=== PATIENT | male | born 1950 | race Caucasian/White ===

== ENCOUNTER 2017-10-15 15:03 | Emergency (ER) | payer MEDICARE, OTHER ==
--- NOTE | 2017-10-15 15:34 | EDM.PDOC ---
ED HPI GENERAL MEDICAL PROBLEM - General Chief Complaint: Neck Problem Stated Complaint: NECK PAIN Time Seen by Provider: 10/15/17 15:33 Source of Information: Reports: Patient - History of Present Illness INITIAL COMMENTS - FREE TEXT/NARRATIVE: HISTORY AND PHYSICAL: History of present illness: [ Patient presents with neck pain 6 out of 10 nonradiating right greater than left and eyes injury or trauma He has a history of rheumatoid arthritis he went to bed enjoying his usual state of health he awoke with neck pain, I can reproduce neck pain with palpation in her right trapezius distribution as well as SCM, worsened by turning head to the right better at rest No fever nausea vomiting chills sweats no chest pain shortness breath headache dizziness or palpitation no bowel or urine symptoms current ] Review of systems: As per history of present illness and below otherwise all systems reviewed and negative. Past medical history: As per history of present illness and as reviewed below otherwise noncontributory. Surgical history: As per history of present illness and as reviewed below otherwise noncontributory. Social history: No reported history of drug or alcohol abuse. Family history: As per history of present illness and as reviewed below otherwise noncontributory. Physical exam: HEENT: Atraumatic, normocephalic, pupils reactive, negative for conjunctival pallor or scleral icterus, mucous membranes moist, throat clear, neck supple, nontender, trachea midline. Right trapezius and SCM distribution pain reproduced with palpation i.e. muscle spasm Lungs: Clear to auscultation, breath sounds equal bilaterally, chest nontender. Heart: S1S2, regular, negative for clicks, rubs, or JVD. Abdomen: Soft, nondistended, nontender. Negative for masses or hepatosplenomegaly. Negative for costovertebral tenderness. Pelvis: Stable nontender. Genitourinary: Deferred. Rectal: Deferred. Extremities: Atraumatic, negative for cords or calf pain. Neurovascular unremarkable. Neuro: Awake, alert, oriented. Cranial nerves II through XII unremarkable. Cerebellum unremarkable. Motor and sensory unremarkable throughout. Exam nonfocal. Diagnostics: [Clinical ] Therapeutics: Flexeril Patient currently on tramadol history of renal insufficiency tenths no NSAIDs Soft collar Impression: [Muscle spasm] Definitive disposition and diagnosis as appropriate pending reevaluation and review of above. Neck Pain Score (Numeric/FACES): 9 - Related Data Allergies Allergy/AdvReac Type Severity Reaction Status Date / Time amoxicillin Allergy Other Verified 10/15/17 15:18 Past Medical History HEENT History: Reports: None Cardiovascular History: Reports: High Cholesterol Respiratory History: Reports: None Genitourinary History: Reports: Prostate Disorder, Other (See Below) Neurological History: Reports: None Psychiatric History: Reports: None Endocrine/Metabolic History: Reports: None Hematologic History: Reports: None Immunologic History: Reports: None Oncologic (Cancer) History: Reports: None Dermatologic History: Reports: None - Infectious Disease History Infectious Disease History: Reports: None - Past Surgical History Head Surgeries/Procedures: Reports: None GI Surgical History: Reports: Colonoscopy Musculoskeletal Surgical History: Reports: Knee Replacement Other Musculoskeletal Surgeries/Procedures:: right knee replacement 5 surgery on left knee Social & Family History - Tobacco Use Smoking Status *Q: Current Every Day Smoker Years of Tobacco use: 50 Packs/Tins Daily: 0.5 - Caffeine Use Caffeine Use: Reports: None - Recreational Drug Use Recreational Drug Use: No ED ROS GENERAL - Review of Systems Review Of Systems: ROS reveals no pertinent complaints other than HPI. ED EXAM, GENERAL - Physical Exam Exam: See Below Course - Vital Signs Last Recorded V/S: Last Vital Signs Temp 97.5 F 10/15/17 15:16 Pulse 75 10/15/17 15:16 Resp 20 10/15/17 15:16 BP 138/82 10/15/17 15:16 Pulse Ox 96 10/15/17 15:16 Departure - Departure Time of Disposition: 15:40 Disposition: Home, Self-Care 01 Condition: Good Clinical Impression: Cervical paraspinous muscle spasm - Discharge Information Referrals: PCP,None [Primary Care Provider] - Forms: ED Department Discharge Additional Instructions: Medication as prescribed Icy hot patches may benefit Ice 20 minute intervals 3 times daily Continue current medications as directed If were not able to find a soft collar for you, med [email or web address] will have them available tomorrow morning for purchase Follow-up with primary care as needed or in 2 weeks [facility] [address] [place] [id number] The following information is given to patients seen in the emergency department who are being discharged to home. This information is to outline your options for follow-up care. We provide all patients seen in our emergency department with a follow-up referral. The need for follow-up, as well as the timing and circumstances, are variable depending upon the specifics of your emergency department visit. If you don't have a primary care physician on staff, we will provide you with a referral. We always advise you to contact your personal physician following an emergency department visit to inform them of the circumstance of the visit and for follow-up with them and/or the need for any referrals to a consulting specialist. The emergency department will also refer you to a specialist when appropriate. This referral assures that you have the opportunity for follow-up care with a specialist. All of these measure are taken in an effort to provide you with optimal care, which includes your follow-up. Under all circumstances we always encourage you to contact your private physician who remains a resource for coordinating your care. When calling for follow-up care, please make the office aware that this follow-up is from your recent emergency room visit. If for any reason you are refused follow-up, please contact the [facility] emergency department at and asked to speak to the emergency department charge nurse.
== END 2017-10-15 15:52 | disposition home or self-care (01) ==
LOC: MW.ED 15:03
DX: M62.830 Muscle spasm of back (principal); E78.00 Pure hypercholesterolemia, unspecified; F17.210 Nicotine dependence, cigarettes, uncomplicated; Z88.1 Allergy status to other antibiotic agents
CPT/HCPCS: 99283

== ENCOUNTER 2018-09-10 05:02 | Emergency (ER) | payer MEDICARE, OTHER ==
[2018-09-10] MEDS ORDERED: Sodium Chloride 0.9% 2.5 ML Syringe FLUSH PRN (05:24)
[2018-09-10] MEDS ORDERED: Sodium Chloride 0.9% 500 ML IV ONE (05:24)
[2018-09-10] MEDS ORDERED: Sodium Chloride 0.9% 10 ML Syringe FLUSH PRN (05:24)
[2018-09-10] MEDS ORDERED: Sodium Chloride 0.9% 1,000 ML IV ONE (05:35)
--- NOTE | 2018-09-10 05:35 | EDM.PDOC ---
ED HPI GENERAL MEDICAL PROBLEM - General Chief Complaint: Genitourinary Problem Stated Complaint: BLOOD IN URINE Time Seen by Provider: 09/10/18 05:17 Source of Information: Reports: Patient History Limitations: Reports: No Limitations - History of Present Illness INITIAL COMMENTS - FREE TEXT/NARRATIVE: History of present illness: []Patient started having severe crampy left flank pain with bloody urine early this morning. Patient has had renal cancer in 2006 with a right nephrectomy. Patient denies any fevers, chills, nausea or vomiting. Patient had one episode of diarrhea this morning but feels that it was due to a "greasy pot roast" last night for dinner. Patient also has had right arm swelling for the past 5 days which is improving. He states that he intermittently gets this swelling in different extremities. He denies any trauma, insect bites, chest pain, shortness of breath or pain in the extremity. Review of systems: As per history of present illness and below otherwise all systems reviewed and negative. Past medical history: As per history of present illness and as reviewed below otherwise noncontributory. Surgical history: As per history of present illness and as reviewed below otherwise noncontributory. Social history: No reported history of drug or alcohol abuse. Family history: As per history of present illness and as reviewed below otherwise noncontributory. Physical exam: General: Well developed, well nourished in NAD HEENT: Atraumatic, normocephalic, pupils reactive, negative for conjunctival pallor or scleral icterus, mucous membranes moist, throat clear, neck supple, nontender, trachea midline. Lungs: Clear to auscultation, breath sounds equal bilaterally, chest nontender. Heart: S1S2, regular, negative for clicks, rubs, or JVD. Abdomen: NABS, Soft, nondistended, nontender. Negative for masses or hepatosplenomegaly. Positive for left costovertebral tenderness. Pelvis: Stable nontender. Genitourinary: Deferred. Rectal: Deferred. Extremities: Atraumatic, negative for cords or calf pain. Neurovascular unremarkable. Neuro: Awake, alert, oriented. Cranial nerves II through XII unremarkable. Cerebellum unremarkable. Motor and sensory unremarkable throughout. Exam nonfocal. Skin:warm and dry Diagnostics: CBC, chemistry, UA, CT abdomen and pelvis without contrast showing spread of tumor in the left anterior pelvis into the left wall of the urinary bladder Lyman within the bladder. Therapeutics: IV hydrated patient declined pain meds ED Course: Stable Impression: Bladder cancer with hematuria Prescriptions: None Plan: Discussed with Dr. Smith and patient is to follow-up with him at 1:30 this afternoon in his office. Definitive disposition and diagnosis as appropriate pending reevaluation and review of above. left flank Pain Score (Numeric/FACES): 2 - Related Data Allergies Allergy/AdvReac Type Severity Reaction Status Date / Time amoxicillin Allergy Other Verified 09/10/18 05:10 Home Meds: Home Meds Simvastatin [Zocor] 20 mg PO BEDTIME 10/15/17 [History] Allopurinol [Zyloprim] 1 tab PO DAILY 09/10/18 [History] Ibuprofen 200 mg PO ASDIRECTED PRN 09/10/18 [History] Indomethacin [Indocin] 25 mg PO ASDIRECTED PRN 09/10/18 [History] Past Medical History HEENT History: Reports: None Cardiovascular History: Reports: High Cholesterol Respiratory History: Reports: None Gastrointestinal History: Reports: None Genitourinary History: Reports: Prostate Disorder Neurological History: Reports: None Psychiatric History: Reports: None Endocrine/Metabolic History: Reports: None Hematologic History: Reports: None Immunologic History: Reports: None Oncologic (Cancer) History: Reports: Prostate Dermatologic History: Reports: None - Infectious Disease History Infectious Disease History: Reports: Measles - Past Surgical History Head Surgeries/Procedures: Reports: None GI Surgical History: Reports: Colonoscopy Male Surgical History: Reports: Nephrectomy, Prostatectomy Musculoskeletal Surgical History: Reports: Knee Replacement Other Musculoskeletal Surgeries/Procedures:: right knee replacement 5 surgery on left knee Social & Family History - Family History Family Medical History: Noncontributory - Tobacco Use Smoking Status *Q: Current Every Day Smoker Years of Tobacco use: 52 Packs/Tins Daily: 1 - Caffeine Use Caffeine Use: Reports: Soda - Recreational Drug Use Recreational Drug Use: No ED ROS GENERAL - Review of Systems Review Of Systems: ROS reveals no pertinent complaints other than HPI. ED EXAM, RENAL/ - Physical Exam Exam: See Below (See history of present illness) Course - Vital Signs Last Recorded V/S: Last Vital Signs Temp 97.2 F 09/10/18 05:11 Pulse 104 H 09/10/18 05:11 Resp 20 09/10/18 05:11 BP 134/87 04/01/19 05:11 Pulse Ox 94 L 09/10/18 05:11 - Orders/Labs/Meds Orders: Active Orders 24 hr Category Date Time Status CULTURE URINE [RM] Routine Lab 09/10/18 05:47 Ordered CULTURE URINE [RM] Stat Lab 09/10/18 05:14 Received Sodium Chloride 0.9% [Saline Flush] Med 09/10/18 05:24 Active 10 ml FLUSH ASDIRECTED PRN Sodium Chloride 0.9% [Saline Flush] Med 09/10/18 05:24 Active 2.5 ml FLUSH ASDIRECTED PRN Saline Lock Insert [OM.PC] Stat Oth 09/10/18 05:23 Ordered Medication Orders Sodium Chloride (Saline Flush) 10 ml FLUSH ASDIRECTED PRN PRN Reason: Keep Vein Open Sodium Chloride (Saline Flush) 2.5 ml FLUSH ASDIRECTED PRN PRN Reason: Keep Vein Open Labs: Laboratory Tests 09/10/18 09/10/18 09/10/18 Range/Units 05:14 05:30 05:30 WBC 7.86 (4.0-11.0) K/uL RBC 4.70 (4.50-5.90) M/uL Hgb 15.7 (13.0-17.0) g/dL Hct 46.6 (38.0-50.0) % MCV 99.1 H (80.0-98.0) fL MCH 33.4 H (27.0-32.0) pg MCHC 33.7 (31.0-37.0) g/dL RDW Std Deviation 55.9 (28.0-62.0) fl RDW Coeff of Richard 15 (11.0-15.0) % Plt Count 382 (150-400) K/uL MPV 9.30 (7.40-12.00) fL Neut % (Auto) 79.4 (48.0-80.0) % Lymph % (Auto) 10.9 L (16.0-40.0) % Lyman % (Auto) 7.8 (0.0-15.0) % Eos % (Auto) 1.5 (0.0-7.0) % Baso % (Auto) 0.4 (0.0-1.5) % Neut # (Auto) 6.2 H (1.4-5.7) K/uL Lymph # (Auto) 0.9 (0.6-2.4) K/uL Lyman # (Auto) 0.6 (0.0-0.8) K/uL Eos # (Auto) 0.1 (0.0-0.7) K/uL Baso # (Auto) 0.0 (0.0-0.1) K/uL Nucleated RBC % 0.0 /100WBC Nucleated RBCs # 0 K/uL Sodium 141 (136-148) mmol/L Potassium 4.2 (3.5-5.1) mmol/L Chloride 105 (98-107) mmol/L Carbon Dioxide 24.1 (21.0-32.0) mmol/L BUN 19 H (7.0-18.0) mg/dL Creatinine 1.5 H (0.8-1.3) mg/dL Est Cr Clr Drug Dosing 48.44 mL/min Estimated GFR (MDRD) 46.8 ml/min Glucose 137 H (74-106) mg/dL Calcium 9.6 (8.5-10.1) mg/dL Total Bilirubin 0.4 (0.2-1.0) mg/dL AST 20 (15-37) IU/L ALT 27 (14-63) IU/L Alkaline Phosphatase 294 H (46-116) U/L Total Protein 7.7 (6.4-8.2) g/dL Albumin 2.9 L (3.4-5.0) g/dL Globulin 4.8 H (2.6-4.0) g/dL Albumin/Globulin Ratio 0.6 L (0.9-1.6) Urine Color RED Urine Appearance CLOUDY Urine pH 6.5 (5.0-8.0) Ur Specific [place] 1.025 (1.001-1.035) Urine Protein >=300 H (NEGATIVE) mg/dL Urine Glucose (UA) NEGATIVE (NEGATIVE) mg/dL Urine Ketones NEGATIVE (NEGATIVE) mg/dL Urine Occult Blood LARGE H (NEGATIVE) Urine Nitrite POSITIVE H (NEGATIVE) Urine Bilirubin SMALL H (NEGATIVE) Urine Ictotest NEGATIVE Urine Urobilinogen 1.0 (<2.0) EU/dL Ur Leukocyte Esterase NEGATIVE (NEGATIVE) Urine RBC TOO NUMEROUS TO CT (0-2/HPF) Urine WBC 1-2 (0-5/HPF) Ur Epithelial Cells RARE (NONE-FEW) Urine Bacteria FEW (NEGATIVE) Meds: Medications Generic Name Dose Route Start Last Admin Trade Name Freq PRN Reason Stop Dose Admin Sodium Chloride 10 ml 09/10/18 05:24 Saline Flush FLUSH ASDIRECTED PRN Keep Vein Open Sodium Chloride 2.5 ml 09/10/18 05:24 Saline Flush FLUSH ASDIRECTED PRN Keep Vein Open Discontinued Medications Generic Name Dose Route Start Last Admin Trade Name Freq PRN Reason Stop Dose Admin Sodium Chloride 1,000 mls @ 999 mls/hr 09/10/18 05:35 09/10/18 05:38 Normal Saline IV 09/10/18 06:35 999 mls/hr .Bolus ONE Administration Departure - Departure Time of Disposition: 07:23 Disposition: Home, Self-Care 01 Condition: Good Clinical Impression: Hematuria Qualifiers: Hematuria type: unspecified type Qualified Code(s): R31.9 - Hematuria, unspecified Bladder cancer Qualifiers: Bladder location: lateral wall Qualified Code(s): C67.2 - Malignant neoplasm of lateral wall of bladder - Discharge Information *PRESCRIPTION DRUG MONITORING PROGRAM REVIEWED*: No *COPY OF PRESCRIPTION DRUG MONITORING REPORT IN PATIENT MARIZA: No Referrals: PCP,None [Primary Care Provider] - Forms: ED Department Discharge Additional Instructions: The following information is given to patients seen in the emergency department who are being discharged to home. This information is to outline your options for follow-up care. We provide all patients seen in our emergency department with a follow-up referral. The need for follow-up, as well as the timing and circumstances, are variable depending upon the specifics of your emergency department visit. If you don't have a primary care physician on staff, we will provide you with a referral. We always advise you to contact your personal physician following an emergency department visit to inform them of the circumstance of the visit and for follow-up with them and/or the need for any referrals to a consulting specialist. The emergency department will also refer you to a specialist when appropriate. This referral assures that you have the opportunity for follow-up care with a specialist. All of these measure are taken in an effort to provide you with optimal care, which includes your follow-up. Under all circumstances we always encourage you to contact your private physician who remains a resource for coordinating your care. When calling for follow-up care, please make the office aware that this follow-up is from your recent emergency room visit. If for any reason you are refused follow-up, please contact the [facility] Emergency Department at and asked to speak to the emergency department charge nurse. Follow-up with Dr. Smith at 1:[address] [facility] Specialty [facility] - Urology [address] [place] [phone] - My Orders Last 24 Hours: My Active Orders 09/10/18 05:14 CULTURE URINE [RM] Stat 09/10/18 05:23 Saline Lock Insert [OM.PC] Stat 09/10/18 05:24 Sodium Chloride 0.9% [Saline Flush] 10 ml FLUSH ASDIRECTED PRN Sodium Chloride 0.9% [Saline Flush] 2.5 ml FLUSH ASDIRECTED PRN 09/10/18 05:47 CULTURE URINE [RM] Routine - Assessment/Plan Last 24 Hours: My Active Orders 09/10/18 05:14 CULTURE URINE [RM] Stat 09/10/18 05:23 Saline Lock Insert [OM.PC] Stat 09/10/18 05:24 Sodium Chloride 0.9% [Saline Flush] 10 ml FLUSH ASDIRECTED PRN Sodium Chloride 0.9% [Saline Flush] 2.5 ml FLUSH ASDIRECTED PRN 09/10/18 05:47 CULTURE URINE [RM] Routine
--- NOTE | 2018-09-10 07:07 | CT ---
INDICATION: Left flank pain. TECHNIQUE: A CT volumetric acquisition was performed of the abdomen and pelvis without IV contrast. COMPARISON: CT abdomen and pelvis dated 08/22/2018. FINDINGS: The lung bases are clear. There is no evidence of pleural or pericardial fluid. The patient`s liver and spleen demonstrate normal size and uniform density. There is no evidence of mass or inflammation within the pancreas or stomach. Gallbladder and bile ducts appear normal. The adrenal glands have normal morphology. The patient is status post prior right nephrectomy. There is no evidence of a suspicious mass within the nephrectomy bed which would indicate local tumor recurrence. The appendix appears normal and extends into the right nephrectomy bed. The remaining left kidney appears normal. 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 There is no evidence of retroperitoneal hemorrhage and no evidence retroperitoneal lymphadenopathy. The small intestine appears normal. There are few tiny diverticula within the sigmoid colon but no evidence of active diverticulitis. Prostate gland has been resected. 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 The tumor also extends into the left lateral wall of the urinary bladder. There is increased density within the bladder lumen consistent with a blood clot. IMPRESSION: 1. Extension of the malignant tumor within the left anterior pelvis into the left lateral wall of the urinary bladder. There is hyperdense material within the bladder lumen suggesting hematoma. No evidence of calculus or hydronephrosis within the remaining left kidney. 2. No evidence of a suspicious mass which would indicate local tumor recurrence within the right nephrectomy bed. Please note that all CT scans at this facility use dose modulation, iterative reconstruction, and/or weight-based dosing when appropriate to reduce radiation dose to as low as reasonably achievable. Dictated by Zach Puri MD @ Sep 10 2018 6:55AM Signed by Dr. Zach Puri @ Sep 10 2018 7:05AM
== END 2018-09-10 07:40 | disposition home or self-care (01) ==
LOC: MW.ED 05:02
DX: C67.2 Malignant neoplasm of lateral wall of bladder (principal); E78.00 Pure hypercholesterolemia, unspecified; F17.210 Nicotine dependence, cigarettes, uncomplicated; Z88.1 Allergy status to other antibiotic agents; Z79.899 Other long term (current) drug therapy; Z98.890 Other specified postprocedural states
CPT/HCPCS: 36415; 74176; 80053; 81001; 85025; 87086; 96360; 99284; J7040

== ENCOUNTER 2018-09-11 06:22 | Emergency (ER) | payer MEDICARE, OTHER ==
--- NOTE | 2018-09-11 06:35 | EDM.PDOC ---
<Carla Borja - Last Filed: 09/11/18 06:43> ED HPI GENERAL MEDICAL PROBLEM - General Chief Complaint: Genitourinary Problem Stated Complaint: UNABLE TO URINATE Time Seen by Provider: 09/11/18 06:24 - History of Present Illness INITIAL COMMENTS - FREE TEXT/NARRATIVE: HISTORY AND PHYSICAL: History of present illness: The patient is a 68-year-old male who presents with no urine output since about 3:30 PM yesterday afternoon. The patient was seen here with hematuria and flank pain and was evaluated with a CT scan as well as full lab evaluation. The patient had a known history of renal cancer in 2006 with a right nephrectomy and only has one kidney on the left side. The CT scan indicated that there was a recurrence of tumor extending to the left bladder wall and our urologist Dr. Smith was contacted. The patient went to his office at 1:30 PM yesterday afternoon and was sent to radiology to have a biopsy of a mass per Dr. Smith's direction. The patient said that the biopsy procedure was uneventful and he had no issues at he has been only dribbling urine in small amounts since that time. He was told by Dr. Smith to push hydration which has been trying to do and he has not had any fevers chills nausea vomiting flank pain or diarrhea. The patient says he feels like there is urine trapped in there and he is not sure if leading or clots has caused this. He has had only dribbling since 3:30 PM yesterday. Review of systems: As per history of present illness and below otherwise all systems reviewed and negative. Past medical history: As per history of present illness and as reviewed below otherwise noncontributory. Surgical history: As per history of present illness and as reviewed below otherwise noncontributory. Social history: No reported history of drug or alcohol abuse. Family history: As per history of present illness and as reviewed below otherwise noncontributory. Physical exam: General: Well-developed well-nourished man who is nontoxic and looks very uncomfortable and is pacing the room. Vital signs are noted by me HEENT: Atraumatic, normocephalic,negative for conjunctival pallor or scleral icterus, mucous membranes moist, throat clear, neck supple, nontender, trachea midline. Lungs: Clear to auscultation with some coarse scattered rhonchi but no work of breathing, breath sounds equal bilaterally, chest nontender. Heart: S1S2, regular, negative for clicks, rubs, or JVD. Abdomen: Soft, nondistended, and there is discrete tenderness with palpation in the suprapubic area without rebound or guarding. Hypoactive Negative for masses or hepatosplenomegaly. Negative for costovertebral tenderness. Pelvis: Stable nontender. Genitourinary: External genitalia are within normal limits and the biopsy site in the groin area is without any discrete soft tissue swelling tenderness or drainage. Rectal: Deferred. Extremities: Atraumatic, full range of motion. Neurovascular unremarkable. Neuro: Awake, alert, oriented. Cranial nerves II through XII unremarkable. Cerebellum unremarkable. Motor and sensory unremarkable throughout. Exam nonfocal. Diagnostics: CBC CMP Therapeutics: Quinn catheter placement CT scan of yesterday was reviewed by me as were his labs. His WBC count yesterday was 7.86 with a hemoglobin of 15.7 and a BUN of 19 creatinine of 1.5. I will repeat the labs just because the patient has been in urinary retention for such a long time. Quinn was placed by nursing without complication and the patient did put out 250cc of tea-colored urine without any prema red blood. Is continuing to drain urine and the patient is stating significant improvement. I will endorse this case to Dr. Mcmillan at 7 AM to follow-up the lab tests, especially the BUN and creatinine to assure that this has not changed from yesterday and to continue to monitor urine output involving Dr. Smith as needed and indicated Impression: Acute urinary retention with history of hematuria and pelvic tumor recurrence Definitive disposition and diagnosis as appropriate pending reevaluation and review of above. - Related Data Allergies Allergy/AdvReac Type Severity Reaction Status Date / Time amoxicillin Allergy Other Verified 09/11/18 06:25 Home Meds: Home Meds Simvastatin [Zocor] 20 mg PO BEDTIME 10/15/17 [History] Allopurinol [Zyloprim] 1 tab PO DAILY 09/10/18 [History] Ibuprofen 200 mg PO ASDIRECTED PRN 09/10/18 [History] Indomethacin [Indocin] 25 mg PO ASDIRECTED PRN 09/10/18 [History] Past Medical History HEENT History: Reports: None Cardiovascular History: Reports: High Cholesterol Respiratory History: Reports: None Gastrointestinal History: Reports: None Genitourinary History: Reports: Prostate Disorder Neurological History: Reports: None Psychiatric History: Reports: None Endocrine/Metabolic History: Reports: None Hematologic History: Reports: None Immunologic History: Reports: None Oncologic (Cancer) History: Reports: Prostate Dermatologic History: Reports: None - Infectious Disease History Infectious Disease History: Reports: Measles - Past Surgical History Head Surgeries/Procedures: Reports: None GI Surgical History: Reports: Colonoscopy Male Surgical History: Reports: Nephrectomy, Prostatectomy Musculoskeletal Surgical History: Reports: Knee Replacement Other Musculoskeletal Surgeries/Procedures:: right knee replacement 5 surgery on left knee Social & Family History - Family History Family Medical History: Noncontributory - Caffeine Use Caffeine Use: Reports: Soda ED ROS GENERAL - Review of Systems Review Of Systems: ROS reveals no pertinent complaints other than HPI. ED EXAM, GENERAL - Physical Exam Exam: See Below (See dictation) Course - Vital Signs Last Recorded V/S: Last Vital Signs Temp 96.5 F 09/11/18 06:26 Pulse 118 H 09/11/18 06:26 Resp 20 09/11/18 06:26 BP 146/102 H 09/11/18 06:26 Pulse Ox 95 09/11/18 06:26 - Orders/Labs/Meds Orders: Active Orders 24 hr Category Date Time Status Insert Quinn Catheter [Insert Urinary Catheter] [OM.PC] Care 09/11/18 06:45 Ordered Q24H Urinary Catheter Assessment [RC] ASDIRECTED Care 09/11/18 06:31 Active Labs: Laboratory Tests 09/11/18 09/11/18 Range/Units 06:45 06:45 WBC 8.07 (4.0-11.0) K/uL RBC 4.40 L (4.50-5.90) M/uL Hgb 14.6 (13.0-17.0) g/dL Hct 43.8 (38.0-50.0) % MCV 99.5 H (80.0-98.0) fL MCH 33.2 H (27.0-32.0) pg MCHC 33.3 (31.0-37.0) g/dL RDW Std Deviation 56.1 (28.0-62.0) fl RDW Coeff of Richard 15 (11.0-15.0) % Plt Count 389 (150-400) K/uL MPV 9.20 (7.40-12.00) fL Neut % (Auto) 82.5 H (48.0-80.0) % Lymph % (Auto) 9.0 L (16.0-40.0) % Davis % (Auto) 7.3 (0.0-15.0) % Eos % (Auto) 1.1 (0.0-7.0) % Baso % (Auto) 0.1 (0.0-1.5) % Neut # (Auto) 6.7 H (1.4-5.7) K/uL Lymph # (Auto) 0.7 (0.6-2.4) K/uL Davis # (Auto) 0.6 (0.0-0.8) K/uL Eos # (Auto) 0.1 (0.0-0.7) K/uL Baso # (Auto) 0.0 (0.0-0.1) K/uL Nucleated RBC % 0.0 /100WBC Nucleated RBCs # 0 K/uL Sodium 141 (136-148) mmol/L Potassium 4.1 (3.5-5.1) mmol/L Chloride 105 (98-107) mmol/L Carbon Dioxide 22.0 (21.0-32.0) mmol/L BUN 18 (7.0-18.0) mg/dL Creatinine 1.4 H (0.8-1.3) mg/dL Est Cr Clr Drug Dosing 51.90 mL/min Estimated GFR (MDRD) 50.7 ml/min Glucose 131 H (74-106) mg/dL Calcium 9.5 (8.5-10.1) mg/dL Total Bilirubin 0.6 (0.2-1.0) mg/dL AST 12 L (15-37) IU/L ALT 24 (14-63) IU/L Alkaline Phosphatase 295 H (46-116) U/L Total Protein 7.5 (6.4-8.2) g/dL Albumin 3.0 L (3.4-5.0) g/dL Globulin 4.5 H (2.6-4.0) g/dL Albumin/Globulin Ratio 0.7 L (0.9-1.6) Departure - Departure Disposition: Home, Self-Care 01 Condition: Good Clinical Impression: Retention of urine - Discharge Information Referrals: Abisai Petersen MD [Primary Care Provider] - Forms: ED Department Discharge Additional Instructions: The following information is given to patients seen in the emergency department who are being discharged to home. This information is to outline your options for follow-up care. We provide all patients seen in our emergency department with a follow-up referral. The need for follow-up, as well as the timing and circumstances, are variable depending upon the specifics of your emergency department visit. If you don't have a primary care physician on staff, we will provide you with a referral. We always advise you to contact your personal physician following an emergency department visit to inform them of the circumstance of the visit and for follow-up with them and/or the need for any referrals to a consulting specialist. The emergency department will also refer you to a specialist when appropriate. This referral assures that you have the opportunity for follow-up care with a specialist. All of these measure are taken in an effort to provide you with optimal care, which includes your follow-up. Under all circumstances we always encourage you to contact your private physician who remains a resource for coordinating your care. When calling for follow-up care, please make the office aware that this follow-up is from your recent emergency room visit. If for any reason you are refused follow-up, please contact the [facility] Emergency Department at and asked to speak to the emergency department charge nurse. [facility] Specialty Care - Urology [address] [place] [id number] <Candi Mcmillan - Last Filed: 09/11/18 07:33> ED HPI GENERAL MEDICAL PROBLEM - History of Present Illness INITIAL COMMENTS - FREE TEXT/NARRATIVE: Patient was signed out to me by Dr. Borja to check labs. Patient's CBC is stable and kidney function is also stable BUN/creatinine of 18/1.4. Patient is being discharged stable with leg bag and instructions to follow-up with Dr. Smith. Departure - Departure Time of Disposition: 07:32 - Discharge Information *PRESCRIPTION DRUG MONITORING PROGRAM REVIEWED*: No *COPY OF PRESCRIPTION DRUG MONITORING REPORT IN PATIENT MARIZA: No
== END 2018-09-11 07:55 | disposition home or self-care (01) ==
LOC: MW.ED 06:22
DX: R33.9 Retention of urine, unspecified (principal); C76.3 Malignant neoplasm of pelvis; E78.00 Pure hypercholesterolemia, unspecified; Z88.1 Allergy status to other antibiotic agents; Z79.899 Other long term (current) drug therapy
CPT/HCPCS: 36415; 80053; 85025; 99283

== ENCOUNTER 2018-11-26 17:19 | Emergency (ER) | payer MEDICARE, OTHER ==
--- NOTE | 2018-11-26 17:48 | EDM.PDOC ---
ED HPI GENERAL MEDICAL PROBLEM - General Chief Complaint: Abdominal Pain Stated Complaint: PAIN, CONSTIPATED. RECEIVING CHEMO TRMT Time Seen by Provider: 11/26/18 17:42 - History of Present Illness INITIAL COMMENTS - FREE TEXT/NARRATIVE: HISTORY AND PHYSICAL: History of present illness: Patient's a 68-year-old male history of renal/bladder cancer with metastasis who is currently undergoing chemotherapy who presents with a concern of abdominal pain and constipation he denies any nausea vomiting denies fever chills or other concern. No chest pain or shortness of breath Review of systems: As per history of present illness and below otherwise all systems reviewed and negative. Past medical history: As per history of present illness and as reviewed below otherwise noncontributory. Surgical history: As per history of present illness and as reviewed below otherwise noncontributory. Social history: No reported history of drug or alcohol abuse. Family history: As per history of present illness and as reviewed below otherwise noncontributory. Physical exam: HEENT: Atraumatic, normocephalic, pupils reactive, negative for conjunctival pallor or scleral icterus, mucous membranes dry, throat clear, neck supple, nontender, trachea midline. Lungs: Clear to auscultation, breath sounds equal bilaterally, chest nontender. Heart: S1S2, regular, negative for clicks, rubs, or JVD. Abdomen: Soft, nondistended, no localized tenderness rebound or guarding. Negative for masses or hepatosplenomegaly. Negative for costovertebral tenderness. Pelvis: Stable nontender. Genitourinary: Deferred. Rectal: Deferred. Extremities: Atraumatic, negative for cords or calf pain. Neurovascular unremarkable. Neuro: Awake, alert, oriented. Follows commands and moves all extremities limited but grossly nonfocal exam. Diagnostics: CBC CMP lipase UA CT abdomen and pelvis Therapeutics: Saline 500 mL bolus Impression: #1 abdominal pain #2 history of bladder carcinoma for #3 history of constipation Definitive disposition and diagnosis as appropriate pending reevaluation and review of above. abdomen Pain Score (Numeric/FACES): 5 - Related Data Allergies Allergy/AdvReac Type Severity Reaction Status Date / Time amoxicillin Allergy Other Verified 11/26/18 17:32 Home Meds: Home Meds Enoxaparin [Lovenox] 40 mg SQ DAILY 11/26/18 [History] Oxybutynin [Oxybutynin ER] mg PO DAILY 11/26/18 [History] Past Medical History HEENT History: Reports: Impaired Vision, Other (See Below) Other HEENT History: wears glasses Cardiovascular History: Reports: High Cholesterol Respiratory History: Reports: None Gastrointestinal History: Reports: None Genitourinary History: Reports: Prostate Disorder Neurological History: Reports: None Psychiatric History: Reports: None Endocrine/Metabolic History: Reports: None Hematologic History: Reports: None Immunologic History: Reports: None Oncologic (Cancer) History: Reports: Prostate Dermatologic History: Reports: None - Infectious Disease History Infectious Disease History: Reports: Measles - Past Surgical History Head Surgeries/Procedures: Reports: None Male Surgical History: Reports: Nephrectomy, Prostatectomy Musculoskeletal Surgical History: Reports: Knee Replacement Other Musculoskeletal Surgeries/Procedures:: right knee replacement 5 surgery on left knee Social & Family History - Family History Family Medical History: Noncontributory - Tobacco Use Smoking Status *Q: Current Every Day Smoker Years of Tobacco use: 50 Packs/Tins Daily: 1 - Caffeine Use Caffeine Use: Reports: Soda - Recreational Drug Use Recreational Drug Use: No ED ROS GENERAL - Review of Systems Review Of Systems: ROS reveals no pertinent complaints other than HPI. ED EXAM, GENERAL - Physical Exam Exam: See Below (The dictation) Course - Vital Signs Text/Narrative:: Patient's emergency department course is unremarkable patient did have a bowel movement while in the emergency department and has resolution of his abdominal pain. Request discharge home with follow-up Last Recorded V/S: Last Vital Signs Temp 36.1 C 11/26/18 19:34 Pulse 69 11/26/18 19:34 Resp 21 H 11/26/18 19:34 BP 115/67 11/26/18 19:34 Pulse Ox 96 11/26/18 19:34 - Orders/Labs/Meds Orders: Active Orders 24 hr Category Date Time Status EKG Documentation Completion [RC] STAT Care 11/26/18 17:44 Active Chest 1V Frontal [CR] Stat Exams 11/26/18 19:32 Taken UA RFX FIONA AND CULT IF INDIC [URIN] Stat Lab 11/26/18 17:45 Ordered Sodium Chloride 0.9% [Normal Saline] 500 ml Med 11/26/18 18:00 Active IV .BOLUS Sodium Chloride 0.9% [Normal Saline] 500 ml Med 11/26/18 19:45 Active IV .BOLUS Medication Orders Sodium Chloride (Normal Saline) 500 mls @ 999 mls/hr IV .BOLUS KENRICK Last Admin: 11/26/18 19:35 Dose: 999 mls/hr Infusion: 11/26/18 18:44 Dose: 999 mls/hr Admin: 11/26/18 18:13 Dose: 999 mls/hr Sodium Chloride (Normal Saline) 500 mls @ 999 mls/hr IV .BOLUS KENRICK Last Admin: 11/26/18 19:36 Dose: 999 mls/hr Labs: Laboratory Tests 11/26/18 11/26/18 Range/Units 18:09 18:09 WBC 11.04 H (4.0-11.0) K/uL RBC 3.44 L (4.50-5.90) M/uL Hgb 10.0 L (13.0-17.0) g/dL Hct 31.7 L (38.0-50.0) % MCV 92.2 (80.0-98.0) fL MCH 29.1 (27.0-32.0) pg MCHC 31.5 (31.0-37.0) g/dL RDW Std Deviation 58.7 (28.0-62.0) fl RDW Coeff of Richard 17 H (11.0-15.0) % Plt Count 418 H (150-400) K/uL MPV 9.30 (7.40-12.00) fL Neut % (Auto) 96.3 H (48.0-80.0) % Lymph % (Auto) 3.1 L (16.0-40.0) % Norman % (Auto) 0.5 (0.0-15.0) % Eos % (Auto) 0.1 (0.0-7.0) % Baso % (Auto) 0.0 (0.0-1.5) % Neut # (Auto) 10.6 H (1.4-5.7) K/uL Lymph # (Auto) 0.3 L (0.6-2.4) K/uL Norman # (Auto) 0.1 (0.0-0.8) K/uL Eos # (Auto) 0.0 (0.0-0.7) K/uL Baso # (Auto) 0.0 (0.0-0.1) K/uL Nucleated RBC % 0.0 /100WBC Nucleated RBCs # 0 K/uL Sodium 138 (136-148) mmol/L Potassium 4.2 (3.5-5.1) mmol/L Chloride 107 (98-107) mmol/L Carbon Dioxide 23.8 (21.0-32.0) mmol/L BUN 27 H (7.0-18.0) mg/dL Creatinine 1.2 (0.8-1.3) mg/dL Est Cr Clr Drug Dosing TNP Estimated GFR (MDRD) > 60.0 ml/min Glucose 118 H (74-106) mg/dL Calcium 8.7 (8.5-10.1) mg/dL Total Bilirubin 0.4 (0.2-1.0) mg/dL AST 18 (15-37) IU/L ALT 37 (14-63) IU/L Alkaline Phosphatase 180 H (46-116) U/L Total Protein 6.0 L (6.4-8.2) g/dL Albumin 2.4 L (3.4-5.0) g/dL Globulin 3.6 (2.6-4.0) g/dL Albumin/Globulin Ratio 0.7 L (0.9-1.6) Lipase 72 L (73-393) U/L Meds: Medications Generic Name Dose Route Start Last Admin Trade Name Freq PRN Reason Stop Dose Admin Sodium Chloride 500 mls @ 999 mls/hr 11/26/18 18:00 11/26/18 19:35 Normal Saline IV 999 mls/hr .BOLUS KENRICK Administration Sodium Chloride 500 mls @ 999 mls/hr 11/26/18 19:45 11/26/18 19:36 Normal Saline IV 999 mls/hr .BOLUS KENRICK Administration Departure - Departure Time of Disposition: 20:33 Disposition: Home, Self-Care 01 Condition: Good Clinical Impression: Abdominal pain, Bladder cancer metastasized to bone - Discharge Information Referrals: Klaus Smiht MD [Primary Care Provider] - Forms: ED Department Discharge Additional Instructions: The following information is given to patients seen in the emergency department who are being discharged to home. This information is to outline your options for follow-up care. We provide all patients seen in our emergency department with a follow-up referral. The need for follow-up, as well as the timing and circumstances, are variable depending upon the specifics of your emergency department visit. If you don't have a primary care physician on staff, we will provide you with a referral. We always advise you to contact your personal physician following an emergency department visit to inform them of the circumstance of the visit and for follow-up with them and/or the need for any referrals to a consulting specialist. The emergency department will also refer you to a specialist when appropriate. This referral assures that you have the opportunity for followup care with a specialist. All of these measure are taken in an effort to provide you with optimal care, which includes your followup. Under all circumstances we always encourage you to contact your private physician who remains a resource for coordinating your care. When calling for followup care, please make the office aware that this follow-up is from your recent emergency room visit. If for any reason you are refused follow-up, please contact the [facility] emergency department at and asked to speak to the emergency department charge nurse. Follow-up primary medical doctor as needed as discussed return as needed as discussed - My Orders Last 24 Hours: My Active Orders 11/26/18 17:44 EKG Documentation Completion [RC] STAT 11/26/18 17:45 UA RFX FIONA AND CULT IF INDIC [URIN] Stat 11/26/18 18:00 Sodium Chloride 0.9% [Normal Saline] 500 ml IV .BOLUS 11/26/18 19:32 Chest 1V Frontal [CR] Stat 11/26/18 19:45 Sodium Chloride 0.9% [Normal Saline] 500 ml IV .BOLUS - Assessment/Plan Last 24 Hours: My Active Orders 11/26/18 17:44 EKG Documentation Completion [RC] STAT 11/26/18 17:45 UA RFX FIONA AND CULT IF INDIC [URIN] Stat 11/26/18 18:00 Sodium Chloride 0.9% [Normal Saline] 500 ml IV .BOLUS 11/26/18 19:32 Chest 1V Frontal [CR] Stat 11/26/18 19:45 Sodium Chloride 0.9% [Normal Saline] 500 ml IV .BOLUS
[2018-11-26] MEDS: Sodium Chloride 0.9% 500 ML IV SCH ×2 (18:13→19:35)
[2018-11-26 18:40] LABS: CHLORIDE,CL 107 mmol/L (98-107); SODIUM,NA 138 mmol/L (136-148)
--- NOTE | 2018-11-26 19:18 | CT ---
INDICATION: Abdominal pain. History of malignant tumor in the left anterior pelvis extending into the urinary bladder. COMPARISON: 09/10/2018 TECHNIQUE: CT examination of the abdomen and pelvis was performed without intravenous contrast. 3 mm thick axial sections were obtained from the lung bases through the pubic symphysis. Oral contrast was not administered. Please note that all CT scans at this facility use dose modulation, iterative reconstruction, and/or weight-based dosing when appropriate to reduce radiation dose to as low as reasonably achievable. FINDINGS: In the abdomen, the liver, spleen, pancreas, and adrenals are normal in appearance. During the interval, a left percutaneous nephrostomy catheter has been placed with satisfactory positioning of the loop within the renal pelvis. The left urinary system is collapsed. Again seen are changes of a right nephrectomy The gallbladder is normal in appearance. The abdominal aorta is normal in caliber with no sign of dilatation. There is calcification of the distal abdominal aorta with a stable focal dissection located just above the bifurcation. An IVC filter has been placed during the interval. There is no sign of retroperitoneal mass or adenopathy. The stomach, loops of small bowel, and colon in the abdomen are normal in appearance. In the pelvis, the appendix is normal in appearance with no sign of inflammatory process. There is no change in mild sigmoid diverticulosis without evidence of diverticulitis. The loops of small bowel and colon in the pelvis are otherwise normal in appearance. Again seen is absence of the prostate gland consistent with resection. A Quinn catheter has been placed into the urinary bladder during the interval and the urinary bladder is now collapsed. Again seen is the soft tissue mass in the left bladder wall with coarse calcifications, extending directly from the mass enlarging the left pelvic wall. This mass appears to arise from the mixed lytic and blastic lesion in the enlarged left pubic bone. Additional tumor extension is seen anterior to the pubic bone, invading enlarging the obturator internus and externus muscle bellies. Tumor also invades the inferior portion of the left rectus abdominus muscle. No distinct pelvic adenopathy is evidence. There is a new tiny left pleural effusion. There is new minimal atelectasis of the posterior left lung base. There is a 5 millimeter noncalcified subpleural nodule in the anterior-lateral right middle lobe on axial image 9 series 201. This region was not included on the previous CT Again seen is prominent disc degenerative disease throughout the lumbar spine with vacuum disc degeneration. Again seen is mild scoliosis of the thoracolumbar spine convex towards the right. IMPRESSION: CT of the abdomen shows satisfactory position of a left percutaneous nephrostomy catheter with no sign of hydronephrosis. Stable changes of right nephrectomy with no sign of recurrent malignancy. Satisfactory positioning of a IVC filter. No change in focal dissection of the inferior infrarenal abdominal aorta. No sign of aneurysmal dilatation. CT of the pelvis shows satisfactory positioning of a Quinn catheter within the urinary bladder. No change in mixed lytic and blastic mass in the left pubis directly extending into the left pelvic wall and into the left wall of the urinary bladder. Direct extension is again seen into the muscle bellies of the left obturator internus and externus and into the inferior muscle belly of the left rectus abdominis. Noncalcified 5 millimeter subpleural nodule in the anterior-lateral right middle lobe, nonspecific. Cannot exclude metastatic disease. Please note that all CT scans at this facility use dose modulation, iterative reconstruction, and/or weight-based dosing when appropriate to reduce radiation dose to as low as reasonably achievable. Dictated by Ang Mccarthy MD @ Nov 26 2018 6:59PM Signed by Dr. Ang Mccarthy @ Nov 26 2018 7:16PM
[2018-11-26] MEDS ORDERED: Sodium Chloride 0.9% 500 ML IV SCH (19:45)
--- NOTE | 2018-11-26 20:27 | CR ---
INDICATION: Abdomen pain TECHNIQUE: Abdominal radiograph 2 views COMPARISON: CT 11/26/2018 FINDINGS: Bowel: The bowel gas pattern is normal without evidence of bowel obstruction. An IVC filter is present and in expected positioning. A Hitchcock loop drainage catheter is seen over the left flank. Soft tissue: No evidence of pneumoperitoneum present. No suspicious calcifications noted. Multiple pelvic surgical clips are present with clips also noted in the right paraspinal region. Bone: Soft tissue mass with internal osteoid and sclerotic densities are present over the left obturator ring without significant interval change. IMPRESSION: 1. Soft tissue mass with internal osteoid and sclerotic densities are present over the left obturator ring without significant interval change. Findings likely due to metastatic disease or sarcomatous degeneration. Dictated by Silvestre Kimball MD @ 11/26/2018 8:26:44 PM Dictated by: Silvestre Kimball MD @ 11/26/2018 20:26:47 (Electronically Signed)
--- NOTE | 2018-11-26 20:40 | CR ---
INDICATION: Pain and shortness of breath. TECHNIQUE: Chest 1 view COMPARISON: None FINDINGS: Cardiovascular and mediastinum: Normal heart size with a right-sided Port-A-Cath with tip at the cavoatrial junction. Lungs and pleural spaces: Lungs are clear. No sign of infiltrate or mass. No sign of pleural effusion. No pneumothorax. Bones and soft tissues: Bilateral acromioclavicular osteoarthritis. IMPRESSION: No acute cardiopulmonary abnormality. Dictated by Ottoniel Peres MD @ Nov 26 2018 8:24PM Signed by Dr. Ottoniel Peres @ Nov 26 2018 8:39PM
== END 2018-11-26 20:44 | disposition home or self-care (01) ==
LOC: MW.ED 17:19
DX: R10.9 Unspecified abdominal pain (principal); F17.210 Nicotine dependence, cigarettes, uncomplicated; C67.9 Malignant neoplasm of bladder, unspecified; C79.51 Secondary malignant neoplasm of bone; E78.00 Pure hypercholesterolemia, unspecified; Z88.1 Allergy status to other antibiotic agents
CPT/HCPCS: 36415; 71045; 74018; 74176; 80053; 83690; 85025; 96361; 96374; 99285; J1642; J7040; 93005; 99284